=== PATIENT | female | born 1935 | race Caucasian/White ===

== ENCOUNTER 2017-02-17 12:03 | Emergency (ER) | payer MEDICARE, OTHER ==
[2017-02-17 12:36] LABS: HEMOGLOBIN 13.7 gm/dl (12.3-15.3); RED BLOOD COUNT 4.72 M/UL (4.00-5.10); WHITE BLOOD COUNT 7.8 K/UL (4.5-11.0)
== END 2017-02-17 14:30 | disposition home or self-care (01) ==
LOC: ER1 12:03
PROVIDERS: Emergency Medicine
DX: J40 Bronchitis, not specified as acute or chronic (principal); I10 Essential (primary) hypertension; I25.10 Atherosclerotic heart disease of native coronary artery without angina pectoris; Z88.0 Allergy status to penicillin; Z79.01 Long term (current) use of anticoagulants; Z79.899 Other long term (current) drug therapy
CPT/HCPCS: 36415; 71020; 80053; 83880; 84484; 85025; 93005; 99285

== ENCOUNTER → 2021-01-30 | Outpatient (CLI) | payer MEDICARE, OTHER ==
[~2021-01-30] MED LIST: ACCUPRIL10 MG PO; ATIVAN0.5 MG PO; ATIVAN1 MG PO; BENICAR 20 MG T20 MG PO; BETAPACE80 MG PO; CARAFATE1 GM/10 ML PO; CLARITIN10 MG PO; COLACE 100MG C100 MG PO; CYCLOBENZAPRINE5 MG PO; CYMBALTA60 MG PO; DESYREL 50 MG T50 MG PO; FLECTOR1 EACH TD; FLORASTOR250 MG PO; IMDUR ER TAB 3030 MG PO; LINZESS145 MCG PO; LOMOTIL 2.5-0.1 EACH PO; MULTAQ 400 MG400 MG PO; NAMENDA5 MG PO; NEURONTIN300 MG PO; NORVASC2.5 MG PO; PRAVACHOL40 MG PO; PROTONIX40 MG PO; SINGULAIR10 MG PO; SYNTHROID50 MCG PO; ULTRAM50 MG PO; WELCHOL625 MG PO; XARELTO 15 MG T15 MG PO; XYZAL5 MG PO; ZITHROMAX250 MG PO; ZOFRAN 4 MG TAB4 MG PO
== END ==
LOC: KOH-I 15:51
DX: M79.671 Pain in right foot (principal); M19.071 Primary osteoarthritis, right ankle and foot
CPT/HCPCS: 73630

== ENCOUNTER 2021-02-20 14:46 | Emergency (ER) | payer MEDICARE, OTHER ==
[~2021-02-20] VITALS: Ht 167.6 cm; Wt 63.5 kg
== END 2021-02-20 18:15 | disposition home or self-care (01) ==
LOC: ER1 14:46
DX: Z23 Encounter for immunization (principal); U07.1 COVID-19; I10 Essential (primary) hypertension; E03.9 Hypothyroidism, unspecified; Z88.0 Allergy status to penicillin
CPT/HCPCS: 99283; M0243

== ENCOUNTER → 2021-04-15 | Outpatient (CLI) | payer MEDICARE, OTHER ==
[~2021-04-15] VITALS: Ht 167.6 cm; Wt 63.5 kg
== END ==
LOC: OPSV 13:00
DX: M81.0 Age-related osteoporosis without current pathological fracture (principal)
CPT/HCPCS: 96365; J3489

== ENCOUNTER → 2022-01-20 | Outpatient (CLI) | payer MEDICARE, OTHER | LOC: KOH-I 13:00 | DX: J18.9 Pneumonia, unspecified organism (principal) | CPT/HCPCS: 71046 ==

== ENCOUNTER 2022-02-09 14:21 | Emergency (ER) | payer MEDICARE, OTHER | END 2022-02-09 18:05 | disposition home or self-care (01) | LOC: ER1 14:21 | DX: S02.40DA Maxillary fracture, left side, initial encounter for closed fracture (principal); Z23 Encounter for immunization; I10 Essential (primary) hypertension; W01.10XA Fall on same level from slipping, tripping and stumbling with subsequent striking against unspecified object, initial encounter; Y92.009 Unspecified place in unspecified non-institutional (private) residence as the place of occurrence of the external cause | CPT/HCPCS: 70450; 70486; 73110; 73130; 90471; 90715; 99284 ==